=== PATIENT | male | born 1995 | race Caucasian/White ===

== ENCOUNTER 2016-08-03 13:57 | Emergency (ER) | payer OTHER, BC ==
[2016-08-03 14:56] VITALS: BP 136/71; PULSE 69; RESP 16; TEMP 97.7; O2SAT 99
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
== END 2016-08-03 15:08 | disposition home or self-care (01) ==
LOC: CED 13:57
DX: S09.90XA Unspecified injury of head, initial encounter (principal); S69.91XD Unspecified injury of right wrist, hand and finger(s), subsequent encounter; R04.0 Epistaxis
CPT/HCPCS: 99213-PO; G0463-PO

== ENCOUNTER 2016-08-03 14:12 | Emergency (ER) | payer BC, OTHER ==
[2016-08-03 15:02] VITALS: BP 136/71; PULSE 69; RESP 16; TEMP 97.7; O2SAT 99
== END 2016-08-03 15:09 | disposition left against medical advice (07) ==
LOC: CED 14:12
DX: Z09 Encounter for follow-up examination after completed treatment for conditions other than malignant neoplasm (principal)
CPT/HCPCS: G0463-PO

== ENCOUNTER 2016-10-17 20:00 | Emergency (ER) | payer BC ==
[2016-10-17 20:16] VITALS: BP 156/71; PULSE 89; RESP 18; TEMP 97.3; O2SAT 97
[2016-10-17] MEDS ORDERED: PENICILLIN VK 500 MG TAB PO ONE (20:49)
--- NOTE | 2016-10-17 20:53 | EDPHY ---
H & P Time Seen by Provider: 10/17/16 20:30 HPI/ROS: This patient describes sore throat for 1 week duration moderate intensity with new onset of the thumb white exudate to the left posterior pharynx over the past 24 hours with a corresponding increase in pain. Her reports subjective fevers associated with this. He also reports mild nasal congestion left ear pressure of moderate intensity. No other associated symptoms. No exacerbating or alleviating factors except for mild relief from ibuprofen. ROS: No high fevers or chills no other constitutional symptoms HEENT: No discharge from his ear. No change in his hearing. No sinus pain. Pulmonary: No significant cough. No shortness of breath. Cardiovascular: No complaints to line GI: No nausea vomiting Integumentary: No skin rash 7 point ROS is otherwise negative. Past Medical/Surgical History: Otherwise healthy Smoking Status: Never smoked Physical Exam: Physical Exam Vital signs are normal. General: No acute distress HEENT: Nose: Clear discharge bilaterally. No sinus tenderness to percussion. Ears: External canals and tympanic membranes are clear with no erythema or abnormal findings bilaterally. Oropharynx: Moderate posterior pharyngeal erythema with exudate on the left. No dysphonia. No drooling or stridor. Eyes: Pupils equal and react to light. Extraocular motions are intact. Neck: Supple with no meningismus. No lymphadenopathy Lungs: Clear to auscultation bilaterally with no rales, rhonchi or wheeze. No respiratory distress. Cardiac: Regular rate and rhythm with no murmur gallop or rub Skin: No rash or pallor. Neuro: Alert with no focal deficits noted. Viral pharyngitis, strep pharyngitis Constitutional: Initial Vital Signs Temperature (C) 36.3 C 10/17/16 20:14 Heart Rate 89 10/17/16 20:14 Respiratory Rate 18 10/17/16 20:14 Blood Pressure 156/71 H 10/17/16 20:14 O2 Sat (%) 97 10/17/16 20:14 O2 Delivery Mode Room Air Allergies/Adverse Reactions: No Known Allergies Allergy (Verified 10/17/16 20:11) Home Medications: Medication Instructions Recorded IBUPROFEN 10/17/16 Penicillin V Potassium [Penicillin 500 mg PO BID #20 10/17/16 VK] MDM/Departure - MDM Medications Given: Discontinued Medications Penicillin V Potassium (Pen Vk) 500 mg PO EDNOW ONE PRN Reason: Protocol Stop: 10/17/16 20:50 Last Admin: 10/17/16 21:15 Dose: 500 mg ED Course/Re-evaluation: Other rapid strep is negative patient does have an exudate and can pains for antibiotic. Given current findings will start him on penicillin pending the DNA strep result. Also treated with MD exclusion for throat pain. - Depart Disposition: Home, Routine, Self-Care Clinical Impression: Pharyngitis Qualifiers: Pharyngitis/tonsillitis etiology: unspecified etiology Qualified Code(s): J02.9 - Acute pharyngitis, unspecified Condition: Good Instructions: Pharyngitis (ED) Stand Alone Forms: Work Excuse Prescriptions: Penicillin V Potassium [Penicillin VK] 500 mg PO BID #20 Referrals: NONE *PRIMARY CARE P,. [Primary Care Provider] - As per Instructions
== END 2016-10-17 21:21 | disposition home or self-care (01) ==
LOC: CED 20:00
DX: J02.9 Acute pharyngitis, unspecified (principal)
CPT/HCPCS: 87880-PO